=== PATIENT | female | born 1965 | race African-American/Black ===

== ENCOUNTER 2021-11-17 00:10 | Emergency (ER) | payer BC ==
[~2021-11-17] VITALS: Ht 172.7 cm; Wt 119.3 kg
[2021-11-17] MEDS ORDERED: HYDROCODONE/APAP 5MG-325MG TAB PO ONE (01:15)
[2021-11-17] MEDS ORDERED: PREDNISONE 20 MG TAB PO ONE (01:15)
[2021-11-17] MEDS ORDERED: PREDNISONE20 MG PO (01:16)
[2021-11-17] MEDS ORDERED: GABAPENTIN300 MG PO (01:17)
[2021-11-17 01:35] VITALS: BP 139/86
== END 2021-11-17 01:35 | disposition home or self-care (01) ==
LOC: FSED 00:18
DX: M54.12 Radiculopathy, cervical region (principal); M25.59 Pain in other specified joint; E11.65 Type 2 diabetes mellitus with hyperglycemia; M06.9 Rheumatoid arthritis, unspecified
CPT/HCPCS: 99283; J7512